=== PATIENT | male | born 1960 | race Two or more races ===

== ENCOUNTER → 2024-02-01 | Outpatient (CLI) | payer OTHER, MEDICAID ==
[2024-02-01 13:41] LABS: Alanine Aminotransferase 50 U/L (7-40); Albumin 4.4 g/dL (3.2-4.8); Alkaline Phosphatase 81 U/L (46-116); Anion Gap 7 (5-15); BUN/Creatinine Ratio 12.2 (10.0-20.0); Blood Urea Nitrogen 14 mg/dL (9-23); Calcium 10.2 mg/dL (8.7-10.4); Carbon Dioxide 25 mmol/L (20-30); Chloride 108 mmol/L (98-107); Glucose 300 mg/dL (74-106); LDL Cholesterol 203 mg/dL (< 100); Potassium 4.1 mmol/L (3.5-5.1); Sodium 140 mmol/L (136-145); Triglycerides 101 mg/dL (< 150)
[2024-02-01 13:42] LABS: Aspartate Aminotransferase 19 U/L (13-40); Bilirubin, Total 1.1 mg/dL (0.2-1.0); Cholesterol 254 mg/dL (< 200); Creatine Kinase IFCC 108 U/L (46-171); HDL Cholesterol 55 mg/dL (40-59); Total Protein 7.4 g/dL (5.7-8.2)
== END | disposition home or self-care (01) ==
LOC: LAB 11:50
PROVIDERS: ATTEND Internal Medicine
DX: E11.65 Type 2 diabetes mellitus with hyperglycemia (principal); E78.5 Hyperlipidemia, unspecified
CPT/HCPCS: 36415; 80053; 80061; 82550; 83036

== ENCOUNTER 2024-02-19 07:22 | Emergency (ER) | payer OTHER, MEDICAID ==
[~2024-02-19] VITALS: Ht 177.8 cm; Wt 59.0 kg
[2024-02-19 07:48] VITALS: TEMP 97.5
[2024-02-19 07:55] VITALS: PULSE 71; RESP 11; O2SAT 97
[2024-02-19] MEDS: InsuLIN REG 1unit/0.01ml Soln (100units/ml) IV ONE (08:01)
[2024-02-19] MEDS: MECLIZINE HCL 25 MG TAB PO ONE (08:01)
[2024-02-19] MEDS: SODIUM CHLORIDE 0.9% 1,000 ML IV ONE ×2 (08:01→08:57)
[2024-02-19 08:09] LABS: Basophils # (auto) 0 10 ^3/uL (0-0.2); Basophils % (auto) 0.6 % (0.0-2.0); Eosinophils # (auto) 0.2 10 ^3/uL (0-0.8); Eosinophils % (auto) 2.4 % (0.0-7.0); Hematocrit 46.9 % (41.0-53.0); Hemoglobin 16.3 g/dL (13.5-17.5); Lymphocytes # (auto) 1.8 10 ^3/uL (0.4-5.4); Lymphocytes % (auto) 20.4 % (10.0-50.0); Mean Corpuscular Hemoglobin 30.9 pg (28.0-32.0); Mean Corpuscular Hgb Conc. 34.8 g/dL (32.0-36.0); Mean Corpuscular Volume 88.9 fL (80.0-100.0); Monocytes # (auto) 0.4 10 ^3/uL (0-1.3); Monocytes % (auto) 4.6 % (0.0-12.0); Neutrophils # (auto) 6.3 10 ^3/uL (1.6-8.6); Nucleated Red Blood Cells % 0.1 %; Red Blood Cells 5.28 10^6/uL (4.5-5.90); Red Cell Distribution Width 13.9 % (11.8-14.3); White Blood Cell 8.7 10^3/uL (4.4-10.8)
[2024-02-19 09:20] LABS: Chloride 106 mmol/L (98-107); Sodium 140 mmol/L (136-145)
[2024-02-19 09:23] LABS: Anion Gap 6 (5-15); Carbon Dioxide 28 mmol/L (20-30)
[2024-02-19 09:24] LABS: Calcium 9.1 mg/dL (8.7-10.4)
[2024-02-19 09:28] LABS: Glucose 263 mg/dL (74-106)
[2024-02-19 09:42] LABS: BUN/Creatinine Ratio 11.2 (10.0-20.0); Blood Urea Nitrogen 11 mg/dL (9-23); Potassium 3.8 mmol/L (3.5-5.1)
[2024-02-19 10:00] VITALS: BP 157/91; PULSE 70; RESP 11; O2SAT 95
[2024-02-19] MEDS ORDERED: MECL1TAB42 PO (10:17)
== END 2024-02-19 10:30 | disposition home or self-care (01) ==
LOC: EDBD 07:22 → ER 07:22 → EDUNIT# 07:22 → ER 10:30
DX: G90.4 Autonomic dysreflexia (principal); E11.9 Type 2 diabetes mellitus without complications; I10 Essential (primary) hypertension
CPT/HCPCS: 36415; 80048; 82962; 84484; 85025; 93005; 96361; 96374; 99284; J1815; J7030; J8597

== ENCOUNTER → 2024-10-03 | Outpatient (CLI) | payer SELFPAY ==
[~2024-10-03] MED LIST: MECL1TAB42 PO
[2024-10-03 12:29] LABS: Albumin 4.6 g/dL (3.2-4.8); Alkaline Phosphatase 68 U/L (46-116); Anion Gap 6 (5-15); Aspartate Aminotransferase 23 U/L (13-40); BUN/Creatinine Ratio 11.4 (10.0-20.0); Bilirubin, Total 1.1 mg/dL (0.2-1.0); Blood Urea Nitrogen 13 mg/dL (9-23); Carbon Dioxide 28 mmol/L (20-31); Chloride 106 mmol/L (98-107); Cholesterol 166 mg/dL (< 200); HDL Cholesterol 49 mg/dL (40-59); Sodium 140 mmol/L (136-145); Total Protein 7.7 g/dL (5.7-8.2); Triglycerides 118 mg/dL (< 150)
[2024-10-03 12:34] LABS: Alanine Aminotransferase 43 U/L (7-40); Glucose 204 mg/dL (74-106); LDL Cholesterol 101 mg/dL (< 100)
[2024-10-04 09:07] LABS: PSA Free 0.18 ng/mL; Prostate Specific Antigen 0.3 ng/mL (0.0-4.0)
== END | disposition home or self-care (01) ==
LOC: LAB 11:39
PROVIDERS: ATTEND Internal Medicine
DX: Z12.5 Encounter for screening for malignant neoplasm of prostate (principal); E11.69 Type 2 diabetes mellitus with other specified complication; E55.9 Vitamin D deficiency, unspecified; E78.5 Hyperlipidemia, unspecified
CPT/HCPCS: 36415; 80053; 80061; 82306; 83036; 84154